=== PATIENT | female | born 1980 | race Caucasian/White ===

== ENCOUNTER → 2019-01-28 | Outpatient (CLI) | payer BC ==
[~2019-01-28] MED LIST: ACIPHEX20 MG PO; BOTOX 100100 U/VIAL IM; CIPRO 500MG TA500 MG PO; DEPO-PROVER150 MG/M1 IM; IMITREX100 MG PO; INDERAL LA160 MG PO; SINGULAIR 110 MG/TAB PO
== END ==
LOC: MC.RAD 13:57
DX: Z12.31 Encounter for screening mammogram for malignant neoplasm of breast (principal)

== ENCOUNTER → 2020-01-30 | Outpatient (CLI) | payer BC | LOC: MC.RAD 16:21 | DX: Z12.31 Encounter for screening mammogram for malignant neoplasm of breast (principal) ==

== ENCOUNTER → 2021-02-26 | Outpatient (CLI) | payer BC | LOC: MC.RAD 14:15 | DX: Z12.31 Encounter for screening mammogram for malignant neoplasm of breast (principal) ==